=== PATIENT | male | born 1940 | race Caucasian/White ===

== ENCOUNTER 2025-05-17 12:51 | Inpatient (IN) | payer OTHER, MEDICARE ==
[~2025-05-17] VITALS: Ht 175.3 cm; Wt 72.5 kg
[2025-05-17] MEDS ORDERED: AMLO5 PO (13:19)
[2025-05-17] MEDS ORDERED: ALBU90OI INH (13:19)
[2025-05-17 13:20] LABS: BASOPHILS ABSOLUTE AUTO 0.08 K/mm3 (0.00-0.23); BASOPHILS PERCENT AUTO 0 % (0-2); EOSINOPHILS ABSOLUTE AUTO 0.00 K/mm3 (0.00-0.68); EOSINOPHILS PERCENT AUTO 0 % (0-6); Hematocrit 38.1 % (37.0-53.0); Hemoglobin 12.0 g/dL (13.5-17.5); IMMATURE GRAN ABSOLUTE AUTO 0.23 K/mm3 (0.00-0.10); IMMATURE GRAN PERCENT AUTO 1 % (0-1); LYMPHOCYTES ABSOLUTE AUTO 0.89 K/mm3 (0.84-5.20); LYMPHOCYTES PERCENT AUTO 3 % (21-46); MONOCYTES ABSOLUTE AUTO 1.76 K/mm3 (0.16-1.47); MONOCYTES PERCENT AUTO 6 % (4-13); Mean Corpuscular HGB Conc 31.5 g/dL (31.5-36.5); Mean Corpuscular Volume 94 fL (80-100); NEUTROPHILS ABSOLUTE AUTO 27.97 K/mm3 (1.96-9.15); NEUTROPHILS PERCENT AUTO 90 % (41-73); NRBC ABSOLUTE 0.00 K/mm3 (0.00-0.02); NRBC Auto 0.0 /100 WBC (0.0-0.2); Platelet Count 222 K/mm3 (150-400); RDW Coefficient Variation 16.5 % (11.7-14.2); RDW Standard Deviation 56.1 fL (35.1-46.3)
[2025-05-17] MEDS ORDERED: CILOSTAZOL50 M1 PO (13:20)
[2025-05-17] MEDS ORDERED: ATOR40TA PO (13:20)
[2025-05-17] MEDS ORDERED: ASPI81CH PO (13:20)
[2025-05-17] MEDS ORDERED: THERA-D2000 UNIT PO (13:20)
[2025-05-17] MEDS ORDERED: FLUT1DIS8 INH (13:21)
[2025-05-17] MEDS ORDERED: METO100ER PO (13:22)
[2025-05-17] MEDS ORDERED: Flonase 0.05% N16 GM (13:22)
[2025-05-17] MEDS ORDERED: TIOT18 INH (13:23)
[2025-05-17] MEDS ORDERED: CENTRUM SILVER1 EAC2 PO (13:23)
[2025-05-17 13:24] LABS: pH Blood Venous 7.28 (7.34-7.37)
[2025-05-17 13:30] LABS: Alanine Aminotransfer (ALT/SGP 31.0 U/L (12-78); Albumin, Blood 3.1 g/dL (3.4-5.0); Albumin/Globulin Ratio 0.9 (0.8-1.8); Anion Gap 10.0 mmol/L (3-11); Aspartate Aminotrans (AST/SGOT 36.0 U/L (12-37); Bilirubin, Total 0.9 mg/dL (0.1-1.0); Blood Urea Nitrogen 40.0 mg/dL (8-24); CO2, Blood 27.0 mmol/L (21-32); Calcium, Blood 9.2 mg/dL (8.5-10.1); Chloride, Blood 107.0 mmol/L (98-108); Creatinine, Blood 1.47 mg/dL (0.60-1.20); Globulin, Blood 3.5 g/dL (2.2-4.0); Glucose, Blood 126.0 mg/dL (70-99); Potassium, Blood 4.6 mmol/L (3.5-5.5); Sodium, Blood 139.0 mmol/L (136-145); Total Protein, Blood 6.6 g/dL (6.4-8.2)
[2025-05-17 14:42] LABS: Influenza A, PCR NEGATIVE (NEGATIVE); Influenza B, PCR NEGATIVE (NEGATIVE); Resp Syncytial Virus, PCR NEGATIVE (NEGATIVE); SARS-Cov-2 (COVID-19) PCR, MMC NEGATIVE (NEGATIVE)
[2025-05-17] MEDS ORDERED: CefTRIAXone Sodium 1,000 MG in NS 50 ML IV ONE (14:50)
[2025-05-17] MEDS ORDERED: FLU VACC TS2025(65UP)/MF59C/PF 45 MCG/0.5 ML SYRINGE IM SCH (15:50)
[2025-05-17] MEDS ORDERED: Ipratropium/Albuterol SulF 2.5-0.5MG/3 ML Amp INH SCH (16:00)
[2025-05-17] MEDS ORDERED: OCUVITE BLUE L1 EACH PO (17:39)
[2025-05-17] MEDS ORDERED: NITR.4SL SL (17:39)
[2025-05-17 17:46] LABS: Source, Urine Clean Catch
[2025-05-17 17:55] LABS: Bilirubin, Urine Neg (Neg); Color, Urine Yellow (P-Yellow); Glucose Qualitative, Urine Neg (Neg); Ketones, Urine Neg (Neg); Leukocyte Esterase, Urine Neg (Neg); Protein, Urine 2+ (Neg); Specific Gravity, Urine 1.020 (1.003-1.022); Urobilinogen, Urine NORM (Normal)
[2025-05-17 18:20] LABS: Red Blood Cells, Urine 0-2 /hpf (0-2); White Blood Cells, Urine 0-2 /hpf (0-5)
[2025-05-17] MEDS ORDERED: Dose Adjust by Pharmacy XX STA (18:20)
[2025-05-17] MEDS ORDERED: Heparin Sodium 5000 Units/ML 1ML MDV IV ONE (18:25)
[2025-05-17] MEDS ORDERED: Heparin Sodium,Porcine/0.5 NS 500 ML IV SCH (18:25)
--- NOTE | 2025-05-17 19:21 | NUR ---
PT ARRIVAL TO UNIT PT ARRIVED TO UNIT AT 1730, TRANSPORTED VIA GURNEY AND TRANSFERED BY SBA. PT IS A/O X4 ABLE TO MAKE NEEDS KNOWN. PT REPORTED HAVING SOB WITH MOVEMENT, PT ON 8L NC, SP02 >92%. NO ACUTE CHANGES SINCE ARRIVING ON UNIT. BED IN LOWEST POSITION, CALL LIGHT IN REACH, WILL REPORT TO ONCOMING SHIFT.
[2025-05-17 19:57] LABS: Anti-Xa UFH, PHA Monitoring 0.93 IU/mL; Prothrombin Time Results 13.5 Sec (9.7-11.5)
[2025-05-17 20:51] VITALS: BP 112/51
[2025-05-17] MEDS ORDERED: Lactobacil 2-S.Thermo-Bifido 1 1 Cap PO SCH (21:00)
[2025-05-17 23:27] VITALS: BP 121/60
[2025-05-18 01:27] LABS: BASOPHILS ABSOLUTE AUTO 0.03 K/mm3 (0.00-0.23); BASOPHILS PERCENT AUTO 0 % (0-2); EOSINOPHILS ABSOLUTE AUTO 0.00 K/mm3 (0.00-0.68); EOSINOPHILS PERCENT AUTO 0 % (0-6); Hematocrit 34.0 % (37.0-53.0); Hemoglobin 11.1 g/dL (13.5-17.5); IMMATURE GRAN ABSOLUTE AUTO 0.15 K/mm3 (0.00-0.10); IMMATURE GRAN PERCENT AUTO 1 % (0-1); LYMPHOCYTES ABSOLUTE AUTO 0.44 K/mm3 (0.84-5.20); LYMPHOCYTES PERCENT AUTO 2 % (21-46); MONOCYTES ABSOLUTE AUTO 1.15 K/mm3 (0.16-1.47); MONOCYTES PERCENT AUTO 5 % (4-13); Mean Corpuscular HGB Conc 32.6 g/dL (31.5-36.5); Mean Corpuscular Volume 92 fL (80-100); NEUTROPHILS ABSOLUTE AUTO 20.87 K/mm3 (1.96-9.15); NEUTROPHILS PERCENT AUTO 92 % (41-73); NRBC ABSOLUTE 0.00 K/mm3 (0.00-0.02); NRBC Auto 0.0 /100 WBC (0.0-0.2); Platelet Count 221 K/mm3 (150-400); RDW Coefficient Variation 16.2 % (11.7-14.2); RDW Standard Deviation 55.2 fL (35.1-46.3)
[2025-05-18 01:46] LABS: Anion Gap 6.0 mmol/L (3-11); Blood Urea Nitrogen 45.0 mg/dL (8-24); CO2, Blood 29.0 mmol/L (21-32); Calcium, Blood 8.9 mg/dL (8.5-10.1); Chloride, Blood 107.0 mmol/L (98-108); Creatinine, Blood 1.34 mg/dL (0.60-1.20); Glucose, Blood 158.0 mg/dL (70-99); Potassium, Blood 4.3 mmol/L (3.5-5.5); Sodium, Blood 138.0 mmol/L (136-145)
[2025-05-18] MEDS ORDERED: Dose Adjust by Pharmacy XX STA ×2 (02:14→09:45)
[2025-05-18 04:27] VITALS: BP 116/61
--- NOTE | 2025-05-18 05:28 | NUR ---
SHIFT SUMMARY PATIENT A/OX4. LS COARSE RUB T/O ALL FARIA. ON O2 @ 4L/MIN NC. PATIENT COOPERATIVE WITH ALL CARE. HARD OF HEARING. VSS. USES URINAL TO VOID IN BED. DENIED PAIN OR DISCOMFORT. PATIENT'S SON CALLED INTO UNIT REQUESTING INFORMATION. PATIENT DOES NOT WANT TO SHARE ANY INFORMATION WITH HIS SON. HEPARIN INFUSING PER EMAR. PLAN OF CARE ONGOING.
[2025-05-18 07:53] VITALS: BP 111/52
[2025-05-18] MEDS ORDERED: CefTRIAXone Sodium 1,000 MG in NS 100 ML IV SCH (09:00)
[2025-05-18] MEDS ORDERED: Enoxaparin 40 MG/0.4 ML SYR SC SCH ×2 (09:00→15:00)
[2025-05-18] MEDS ORDERED: CefTRIAXone Sodium 2,000 MG in NS 100 ML IV SCH (09:00)
[2025-05-18] MEDS ORDERED: Multivitamins/Minerals 1 Tab PO SCH (09:00)
[2025-05-18] MEDS ORDERED: Fluticasone 0.05% Nasal Spray SCH (09:00)
[2025-05-18] MEDS ORDERED: Cholecalciferol 1000 Unit Tablet (=25MCG) PO SCH (09:00)
[2025-05-18 11:42] VITALS: BP 109/52
[2025-05-18 16:12] VITALS: BP 126/51
--- NOTE | 2025-05-18 17:34 | NUR ---
PT SUMMARY; PT O2 ABLE TO TITRATE DOWN TO 1L. SATS KEPT ABOVE 92%. HRR REMAINS SR AT 90-100'S, TACHS UPT O 130'S A COUPLE TIMES FOR RICARDO SHIFT. SBP 110'S, AFEBRILE. PT ABLE TO GET UP AND WALK AROUND IN THE ROOM VIA WALKER, WAS UP IN THE RECLINER HALF OF THE SHIFT, SOME SOB WITH EXERTION RECOVERS AT REST. BREATHING TX PER RT, PT USES FLUTTER VALVE INDEPENDENTLY. DENIES ANY PAIN OR DISCOMFORT. LR RUNNING AT 100MLS/HR. PT HAS BEEN CALLING APPROPRIATELY ABLE TO MAKE NEEDS KNOWN. WILL REPORT TO ONCOMING SHIFT
[2025-05-18 19:45] VITALS: BP 113/64
[2025-05-18 23:32] VITALS: BP 107/78
[2025-05-19 03:58] LABS: BASOPHILS ABSOLUTE AUTO 0.02 K/mm3 (0.00-0.23); BASOPHILS PERCENT AUTO 0 % (0-2); EOSINOPHILS ABSOLUTE AUTO 0.00 K/mm3 (0.00-0.68); EOSINOPHILS PERCENT AUTO 0 % (0-6); Hematocrit 30.2 % (37.0-53.0); Hemoglobin 9.9 g/dL (13.5-17.5); IMMATURE GRAN ABSOLUTE AUTO 0.07 K/mm3 (0.00-0.10); IMMATURE GRAN PERCENT AUTO 0 % (0-1); LYMPHOCYTES ABSOLUTE AUTO 0.47 K/mm3 (0.84-5.20); LYMPHOCYTES PERCENT AUTO 3 % (21-46); MONOCYTES ABSOLUTE AUTO 1.01 K/mm3 (0.16-1.47); MONOCYTES PERCENT AUTO 6 % (4-13); Mean Corpuscular HGB Conc 32.8 g/dL (31.5-36.5); Mean Corpuscular Volume 92 fL (80-100); NEUTROPHILS ABSOLUTE AUTO 14.24 K/mm3 (1.96-9.15); NEUTROPHILS PERCENT AUTO 90 % (41-73); NRBC ABSOLUTE 0.02 K/mm3 (0.00-0.02); NRBC Auto 0.1 /100 WBC (0.0-0.2); Platelet Count 208 K/mm3 (150-400); RDW Coefficient Variation 15.7 % (11.7-14.2); RDW Standard Deviation 53.3 fL (35.1-46.3)
[2025-05-19 04:19] VITALS: BP 119/57
[2025-05-19 04:28] LABS: Anion Gap 7.0 mmol/L (3-11); Blood Urea Nitrogen 50.0 mg/dL (8-24); CO2, Blood 27.0 mmol/L (21-32); Calcium, Blood 8.9 mg/dL (8.5-10.1); Chloride, Blood 108.0 mmol/L (98-108); Creatinine, Blood 1.13 mg/dL (0.60-1.20); Glucose, Blood 170.0 mg/dL (70-99); Potassium, Blood 4.3 mmol/L (3.5-5.5); Sodium, Blood 138.0 mmol/L (136-145)
--- NOTE | 2025-05-19 04:46 | NUR ---
SHIFT SUMMARY THIS RN ASSUMED CARE OF PATIENT AT 1900. PT A&O X4. ABLE TO MAKE NEEDS KNOWN. SBA WITH URINAL. PT AMBULATED TO BATHROOM THIS SHIFT. DYSPNEA NOTED WITH EXERTION. PT NEEDING 1-3L VIA NC TO MAINTAIN SPO2. BP STABLE. SR ON MONITOR WITH PAC'S/PVC'S. PT ABLE TO REPOSITION SELF INDEPENDENTLY. PRODUCTIVE COUGH NOTED. LR INFUSING PER EMAR. BED IN LOWEST POSITION AND CALL LIGHT WITHIN REACH. THIS RN WILL REPORT TO ONCOMING DAYSHIFT RN.
[2025-05-19 07:39] VITALS: BP 126/72
[2025-05-19] MEDS ORDERED: NS 250 ML IV PRN (08:45)
--- NOTE | 2025-05-19 10:46 | NUR ---
RN NOTE Mr Andrea c/o increased shortness of breath this morning. Pulse ox in the 90s on 2L nc O2. He has increased shortness of breath on exertion and talking. He has a low strength productive cough. Using flutter valve and receiving breathing treatments from RT. He is able to sit up and reposition himself in bed/on the edge of the bed. He denies any pain. IVF stopped per verbal order from Dr Cooper. Tele SR, BBB, PVCs, PACs. Bed low, call light in reach.
[2025-05-19 11:44] VITALS: BP 132/66
[2025-05-19 15:38] VITALS: BP 130/66
--- NOTE | 2025-05-19 15:48 | NUR ---
Shift Summary Mr Andrea is orientated x4. Dozing on and off throughout the shift. He denies any pain. He gets short of breath with activity, has been weaned down to room air at 1540hrs. Sat 92% on room air, will continue to monitor. He has been sitting up on the edge of the bed for meals, moving independently. On telemetry SR/ST low 100s. No calls from telephone operator chief. Bed low, call light in reach.
--- NOTE | 2025-05-19 16:44 | NUR ---
RN note Attempt to wean to room air unsuccessful, back on 1L nc oxygen with sat 92%
[2025-05-19 20:43] VITALS: BP 126/69
[2025-05-19 23:28] VITALS: BP 121/65
[2025-05-20] VITALS (32 sets, daily range): BP systolic 90–164; BP diastolic 44–104
[2025-05-20 02:48] LABS: BASOPHILS ABSOLUTE AUTO 0.03 K/mm3 (0.00-0.23); BASOPHILS PERCENT AUTO 0 % (0-2); EOSINOPHILS ABSOLUTE AUTO 0.00 K/mm3 (0.00-0.68); EOSINOPHILS PERCENT AUTO 0 % (0-6); Hematocrit 33.0 % (37.0-53.0); Hemoglobin 10.4 g/dL (13.5-17.5); IMMATURE GRAN ABSOLUTE AUTO 0.16 K/mm3 (0.00-0.10); IMMATURE GRAN PERCENT AUTO 1 % (0-1); LYMPHOCYTES ABSOLUTE AUTO 0.71 K/mm3 (0.84-5.20); LYMPHOCYTES PERCENT AUTO 3 % (21-46); MONOCYTES ABSOLUTE AUTO 2.08 K/mm3 (0.16-1.47); MONOCYTES PERCENT AUTO 8 % (4-13); Mean Corpuscular HGB Conc 31.5 g/dL (31.5-36.5); Mean Corpuscular Volume 94 fL (80-100); NEUTROPHILS ABSOLUTE AUTO 21.76 K/mm3 (1.96-9.15); NEUTROPHILS PERCENT AUTO 88 % (41-73); NRBC ABSOLUTE 0.04 K/mm3 (0.00-0.02); NRBC Auto 0.2 /100 WBC (0.0-0.2); Platelet Count 236 K/mm3 (150-400); RDW Coefficient Variation 15.7 % (11.7-14.2); RDW Standard Deviation 54.2 fL (35.1-46.3)
[2025-05-20 03:04] LABS: Anion Gap 6.0 mmol/L (3-11); Blood Urea Nitrogen 37.0 mg/dL (8-24); CO2, Blood 30.0 mmol/L (21-32); Calcium, Blood 9.0 mg/dL (8.5-10.1); Chloride, Blood 107.0 mmol/L (98-108); Creatinine, Blood 0.95 mg/dL (0.60-1.20); Glucose, Blood 148.0 mg/dL (70-99); Potassium, Blood 4.7 mmol/L (3.5-5.5); Sodium, Blood 138.0 mmol/L (136-145)
--- NOTE | 2025-05-20 05:29 | NUR ---
SHIFT SUMMARY THIS RN ASSUMED CARE OF PATIENT AT 1900. PT A&O X4. ABLE TO MAKE NEEDS KNOWN. SBA WITH URINAL. SOB WITH EXERTION AND CONVERSATION. PT NEEDING 1-5L VIA NC TO MAINTAIN SPO2. EPISODE OF INCREASED SOB EARLY THIS AM THAT REQUIRED PT TO BE ON 5L WITH BREATHING TX GIVEN. PT WAS SLOW TO RECOVER. OTHERWISE NO ACUTE CHANGES THIS SHIFT. BP STABLE. SR ON MONITOR WITH PAC'S/PVC'S. PT ABLE TO REPOSITION SELF INDEPENDENTLY. PRODUCTIVE COUGH NOTED. BED IN LOWEST POSITION AND CALL LIGHT WITHIN REACH. THIS RN WILL REPORT TO ONCOMING DAYSHIFT RN.
--- NOTE | 2025-05-20 09:56 | NUR ---
THIS RN CALLED DR. MERCER WITH CONCERN FOR PT'S INCREASE RESP DISTRESS AT RN-PROVIDER ROUNDING ABOUT 814, THIS RN AND CUBA RN DISCUSSED CONCERNS OF PT'S SOB, TACHYPENEA, AND ACCESSORY MUSCLE USE WHILE BREATHING. REPEAT XRAY, DIRUETICS, AND ANXIETY MEDICATIONS WERE DISCUSSED ON ROUNDS. ABOUT 899 THE PT BEGAN HAVING MORE INCREASED SOB. THIS RN FOUND DR. MC AND DR. GREENE ON THE UNIT AND AGAIN EXPRESSED THE CONCERNS OF THE PT. AT THAT TIME DR. MC AND DR. GREENE ORDERED 0.5-1MG OF ATIVAN AND 40 IV LASIX. ABOUT 929 WHILE THIS RN WAS MEDICATING THE PT, GASKET SUPERVISOR CALLED DR. GREENE TO ASK FOR BIPAP TO HELP PUSH FLUIDS OUT OF THE PT'S LUNGS AND LET THEM KNOW OF INCREASE OXYGEN DEMAND TO 10L NC. ALSO, THIS RN ASKED FOR A STAT XRAY BEFORE THE BIPAP IS STARTED. XRAY CURRENTLY BEING PREFORMED AT THIS TIME. BIPAP IS ON STANDBY WITH RESP THERAPY. SINCE THE PT HAS RECIEVED 0.5MG HIS RESP NEED HAS DECREASED TO 4LNC. RESP RATE CURRENTLY 56. SEE NOTES FOR UPDATES.
[2025-05-20] MEDS ORDERED: LORazepam 2 MG/ML 1ML Injection IV ONE (10:00)
[2025-05-20] MEDS ORDERED: LORazepam 2 MG/ML 1ML Injection IV PRN (10:00)
[2025-05-20 11:17] LABS: pH Blood Arterial 7.33 (7.35-7.45)
--- NOTE | 2025-05-20 11:33 | NUR ---
DR. GREENE AND DR. RAMIREZ CALLED TO BEDSIDE D/T PT CONTINOUSLY REGRESSING. ROQUE RT AT BEDSIDE. ABG OBTAINED. VILLA INSERTED BY CUBA PAEZ. THE PT DID TELL NURSES AND THE STAFF THAT IF HE NEEDS TO BE INTUBATED HE IS OKAY WITH IT. ALSO, THE PT STATED THAT HIS NATHALIE RANDHAWA:[phone] IS HIS HEALTH PROXY. THE PT DOES NOT WANT ANY INFORMATION GIVEN TO HIS SON. CURRENTLY THE PT IS ON THE BIPAP 04/02 @ 40% RESP RATE 40'S-50'S. THE PT WILL BE TRANSFERING TO ICU 14. THE PT'S FREIND IS AT BEDSIDE AND HAS BEEN UPDATED ON THE TRANSFER AND CONDITION OF THE PT. THE FREIND ROQUE: [phone] DID CALL THE PT'S AND GAVE HER A HEADS UP THAT THE HOSPITAL WILL BE CALLING HER. SEE NOTES FOR UPDATES.
[2025-05-20] MEDS ORDERED: Ipratropium/Albuterol SulF 2.5-0.5MG/3 ML Amp INH SCH (12:00)
[2025-05-20] MEDS ORDERED: Ipratropium/Albuterol SulF 2.5-0.5MG/3 ML Amp INH ONE (12:00)
[2025-05-20] MEDS ORDERED: CefTRIAXone Sodium 1,000 MG in NS 100 ML IV ONE (12:20)
--- NOTE | 2025-05-20 12:23 | NUR ---
TRANSFER TO ICU SEE PREVIOUS NURSE NOTES. PT TRANSFERRED TO ICU 14, BEDSIDE REPORT GIVEN TO JEANNA PAEZ. PT'S NATHALIE AND FRIEND HAVE BEEN MADE AWARE OF THE TRANSFER. NATHALIE AWARE THAT DR. GREENE WILL BE CALLING HER TO UPDATE HER SOON. DURING TRANSFER, PT REMAINED ON BIPAP 16/8 W/ 40%. BELONGNGS,INCLUDING HEARING AIDS AND SUPERVISING LIBRARIAN, HAVE BEEN PACKED UP AND MOVED WITH PT. RESPIRATORY PANEL COMPLETED PRIOR TO TRANSFER AND SENT TO LAB. NO FURTHER NOTES FROM THIS RN.
[2025-05-20 13:39] LABS: Influenza A/2009-H1 Not Detected (NOT DETECT); SARS-Cov-2 (COVID-19), BioFire Not Detected (NOT DETECT)
[2025-05-20] MEDS ORDERED: Vancomycin (Pharmacy Consult) IV SCH (14:30)
[2025-05-20 17:55] LABS: pH Blood Arterial 7.36 (7.35-7.45)
[2025-05-20 18:14] LABS: Albumin, Blood 2.4 g/dL (3.4-5.0); Anion Gap 5 mmol/L (3-11); Blood Urea Nitrogen 30 mg/dL (8-24); CO2, Blood 32 mmol/L (21-32); Calcium, Blood 8.7 mg/dL (8.5-10.1); Chloride, Blood 107 mmol/L (98-108); Creatinine, Blood 0.89 mg/dL (0.60-1.20); Glucose, Blood 165 mg/dL (70-99); Magnesium, Blood 2.1 mg/dL (1.6-2.4); Phosphorus, Blood 3.6 mg/dL (2.5-4.9); Potassium, Blood 4.3 mmol/L (3.5-5.5); Sodium, Blood 140 mmol/L (136-145)
--- NOTE | 2025-05-20 18:17 | NUR ---
Patient arrived from PCU today at 11:53 with increased work of breathing and requiring Bipap. Patient was able to come off of Bipap ~15:13 when patient was constantly pulling at his Bipap. Patient remained off Bipap until ~16:53 when his work of breathing increased again. Precedex infusion started at this time to help patient tolerate Bipap. Patient's cell phone, upper dentures and hearing aids present in his belongings.
[2025-05-21] VITALS (44 sets, daily range): BP systolic 92–160; BP diastolic 43–88
[2025-05-21 03:35] LABS: BASOPHILS ABSOLUTE AUTO 0.02 K/mm3 (0.00-0.23); BASOPHILS PERCENT AUTO 0 % (0-2); EOSINOPHILS ABSOLUTE AUTO 0.00 K/mm3 (0.00-0.68); EOSINOPHILS PERCENT AUTO 0 % (0-6); Hematocrit 33.2 % (37.0-53.0); Hemoglobin 10.7 g/dL (13.5-17.5); IMMATURE GRAN ABSOLUTE AUTO 0.08 K/mm3 (0.00-0.10); IMMATURE GRAN PERCENT AUTO 1 % (0-1); LYMPHOCYTES ABSOLUTE AUTO 0.36 K/mm3 (0.84-5.20); LYMPHOCYTES PERCENT AUTO 2 % (21-46); MONOCYTES ABSOLUTE AUTO 0.85 K/mm3 (0.16-1.47); MONOCYTES PERCENT AUTO 5 % (4-13); Mean Corpuscular HGB Conc 32.2 g/dL (31.5-36.5); Mean Corpuscular Volume 92 fL (80-100); NEUTROPHILS ABSOLUTE AUTO 16.27 K/mm3 (1.96-9.15); NEUTROPHILS PERCENT AUTO 93 % (41-73); NRBC ABSOLUTE 0.00 K/mm3 (0.00-0.02); NRBC Auto 0.0 /100 WBC (0.0-0.2); Platelet Count 192 K/mm3 (150-400); RDW Coefficient Variation 15.6 % (11.7-14.2); RDW Standard Deviation 53.0 fL (35.1-46.3)
[2025-05-21 03:38] LABS: pH Blood Venous 7.52 (7.34-7.37)
[2025-05-21 04:08] LABS: Alanine Aminotransfer (ALT/SGP 51.0 U/L (12-78); Albumin, Blood 2.0 g/dL (3.4-5.0); Albumin/Globulin Ratio 0.6 (0.8-1.8); Anion Gap 7.0 mmol/L (3-11); Aspartate Aminotrans (AST/SGOT 20.0 U/L (12-37); Bilirubin, Total 0.4 mg/dL (0.1-1.0); Blood Urea Nitrogen 37.0 mg/dL (8-24); CO2, Blood 30.0 mmol/L (21-32); Calcium, Blood 9.0 mg/dL (8.5-10.1); Chloride, Blood 110.0 mmol/L (98-108); Creatinine, Blood 0.91 mg/dL (0.60-1.20); Globulin, Blood 3.3 g/dL (2.2-4.0); Glucose, Blood 164.0 mg/dL (70-99); Magnesium, Blood 2.2 mg/dL (1.6-2.4); Phosphorus, Blood 3.7 mg/dL (2.5-4.9); Potassium, Blood 4.9 mmol/L (3.5-5.5); Sodium, Blood 142.0 mmol/L (136-145); Total Protein, Blood 5.3 g/dL (6.4-8.2)
--- NOTE | 2025-05-21 06:22 | NUR ---
SHIFT SUMMERY PT HAS BEEN ALERT AND ORIENTED X3 THROUGHOUT THE NIGHT. HE HAS BEEN DIFFICULT TO REDIRECT W/COMPLIANCE TO WEAR HIS BIPAP. PRECEDEX HAS BEEN INFUSING, SEE [facility]. PT WAS GIVEN A BREAK ON 4L NC BUT BECAME INCREASINGLY TACYPNIC AND AIR HUNGRY. HE HAS BEEN SR ON THE AUDIT LEAD W/OCCASIONAL PAC/PVC. AFEBRILE. OXYGEN SAT HAVE MAINTAINED >90%. PT HAS A WEAK CONGESTED COUGH. VILLA CATH INTACT PATENT AND DRAINING YELLOW URINE. BP WNL. GENERALIZED WEAKNESS, SOME CONFUSION AT TIMES UPON WAKING
[2025-05-21] MEDS ORDERED: CefTRIAXone Sodium 2,000 MG in NS 100 ML IV SCH (09:00)
[2025-05-21 13:00] LABS: Acinetobacter baumannii DNA Not Detected copy/mL (NOT DETECT); Enterobacter cloacae DNA Not Detected copy/mL (NOT DETECT); Klebsiella aerogenes DNA Not Detected copy/mL (NOT DETECT); Klebsiella oxytoca DNA Not Detected copy/mL (NOT DETECT); Klebsiella pneumoniae DNA Not Detected copy/mL (NOT DETECT); Moraxella catarrhalis DNA Detected Bin 10^5 copy/mL (NOT DETECT); Proteus sp DNA Not Detected copy/mL (NOT DETECT); Pseudomonas aeruginosa DNA Detected Bin 10^4 copy/mL (NOT DETECT); Serratia marcescens DNA Not Detected copy/mL (NOT DETECT); Staphylococcus aureus DNA Not Detected copy/mL (NOT DETECT); Streptococcus agalactiae DNA Not Detected copy/mL (NOT DETECT); Streptococcus pneumoniae DNA Not Detected copy/mL (NOT DETECT); Streptococcus pyogenes DNA Not Detected copy/mL (NOT DETECT)
[2025-05-21 13:01] LABS: CTX-M Resistance Gene Not Detected; Chlamydia pneumonia Not Detected (NOT DETECT); Escherichia coli DNA Not Detected copy/mL (NOT DETECT); Haemophilus influenzae DNA Detected Bin 10^4 copy/mL (NOT DETECT); Human Coronavirus RNA Not Detected (NOT DETECT); Human Metapneumovirus RNA Not Detected (NOT DETECT); IMP Resistance Gene Not Detected; Influenza virus A RNA Not Detected (NOT DETECT); Influenza virus B RNA Not Detected (NOT DETECT); KPC Resistance Gene Not Detected; NDM Resistance Gene Not Detected; Respiratory syncytial Vir RNA Not Detected (NOT DETECT); Rhinovirus+Enterovirus RNA Not Detected (NOT DETECT); VIM Resistance Gene Not Detected
--- NOTE | 2025-05-21 22:14 | NUR ---
UPDATE TRANSFERRED PATIENT CHANGED TO PCU STATUS. GAVE REPORT TUSHAR PAEZ PCU. PATIENT TRANSFERRED TO PCU 2 @2200
[2025-05-21] MEDS ORDERED: Metoprolol Tartrate 1 MG/ML 5 ML VIAL IV PRN (23:30)
[2025-05-22] VITALS (9 sets, daily range): BP systolic 115–150; BP diastolic 55–88
[2025-05-22] MEDS ORDERED: LORazepam 2 MG/ML 1ML Injection IV PRN ×3 (00:55)
[2025-05-22] MEDS ORDERED: Metoprolol Tartrate 1 MG/ML 5 ML VIAL IV PRN ×2 (03:15→12:20)
[2025-05-22 03:56] LABS: pH Blood Venous 7.46 (7.34-7.37)
[2025-05-22 03:56] LABS: BASOPHILS ABSOLUTE AUTO 0.03 K/mm3 (0.00-0.23); BASOPHILS PERCENT AUTO 0 % (0-2); EOSINOPHILS ABSOLUTE AUTO 0.00 K/mm3 (0.00-0.68); EOSINOPHILS PERCENT AUTO 0 % (0-6); Hematocrit 34.1 % (37.0-53.0); Hemoglobin 11.0 g/dL (13.5-17.5); IMMATURE GRAN ABSOLUTE AUTO 0.17 K/mm3 (0.00-0.10); IMMATURE GRAN PERCENT AUTO 1 % (0-1); LYMPHOCYTES ABSOLUTE AUTO 0.35 K/mm3 (0.84-5.20); LYMPHOCYTES PERCENT AUTO 2 % (21-46); MONOCYTES ABSOLUTE AUTO 0.93 K/mm3 (0.16-1.47); MONOCYTES PERCENT AUTO 5 % (4-13); Mean Corpuscular HGB Conc 32.3 g/dL (31.5-36.5); Mean Corpuscular Volume 91 fL (80-100); NEUTROPHILS ABSOLUTE AUTO 17.78 K/mm3 (1.96-9.15); NEUTROPHILS PERCENT AUTO 92 % (41-73); NRBC ABSOLUTE 0.00 K/mm3 (0.00-0.02); NRBC Auto 0.0 /100 WBC (0.0-0.2); Platelet Count 258 K/mm3 (150-400); RDW Coefficient Variation 15.6 % (11.7-14.2); RDW Standard Deviation 52.3 fL (35.1-46.3)
[2025-05-22 04:16] LABS: Anion Gap 8.0 mmol/L (3-11); Blood Urea Nitrogen 41.0 mg/dL (8-24); CO2, Blood 30.0 mmol/L (21-32); Calcium, Blood 9.2 mg/dL (8.5-10.1); Chloride, Blood 108.0 mmol/L (98-108); Creatinine, Blood 0.9 mg/dL (0.60-1.20); Glucose, Blood 182.0 mg/dL (70-99); Potassium, Blood 4.4 mmol/L (3.5-5.5); Sodium, Blood 142.0 mmol/L (136-145)
--- NOTE | 2025-05-22 07:24 | NUR ---
SHIFT SUMMARY: PT TRANSFERRED FROM ICU TO PCU 2 VIA SPECIALTY BED AT 2206, SLID PT OVER TO HOSPITAL BED USING A SLIDE SHEET. PT ORIENTED TO ROOM, STAFF AND CALL LIGHT. PT IS A&OX3, OFF ON DATE. VERY [place], BILAT HEARING AIDES IN POWER CHECKER AT BEDSIDE. BP STABLE, HR TACHY, AFEBRILE, TACHYPNEIC ON RA, SATS >90%. HE WORE CPAP FOR A SHORT TIME HE CAN'T TOLERATE IT. MULTIFOCAL ATRIAL TACHYCARDIA 110'S INCREASED TO 140'S WITH ANY EXERTION. PT CONVERTED TO AFIB WITH RVR, A TOTAL OF 4 LOPRESSOR PUSHES ADMINISTERED, SEE EMAR. PT NOW IN AFLUTTER/AFIB 110'S- 130'S. DENIES PAIN. TOLERATING A HEART HEALTHY DIET. VILLA CATHETER PATENT, DRAINING ADEQUATE AMOUNTS OF YELLOW URINE TO GRAVITY. NO BM THIS SHIFT, NEEDS BOWEL CARE ORDERED. BED IN LOWEST POSITION, CALL LIGHT WITHIN REACH. INITIATED DROPLET PRECAUTIONS FOR POSITIVE INFLUENZA. BED ALARM SET FOR PT'S SAFETY.
--- NOTE | 2025-05-22 18:47 | NUR ---
SHIFT SUMMARY PATIENT AOX3-4 ABLE TO NEEDS KNOWN DENIES CP DOES HAVE SOB WITH EXERTION. VITALS ARE STABLE WITH HR IN 130s 2 DOSES OF PO METOPROLOL GIVEN AND HR NOW IN THE 110s. PATIENT TOLERAING HIS MEALS AND ABLE TO USE THE BEDSIDE COMMODE FOR BM AND VILLA IS DRAINING TO GRAVITY.
[2025-05-22] MEDS ORDERED: Enoxaparin 80 MG/0.8 ML SYR SC SCH (21:00)
[2025-05-23 00:46] VITALS: BP 149/96
[2025-05-23 04:18] VITALS: BP 130/90
[2025-05-23 04:27] LABS: BASOPHILS ABSOLUTE AUTO 0.02 K/mm3 (0.00-0.23); BASOPHILS PERCENT AUTO 0 % (0-2); EOSINOPHILS ABSOLUTE AUTO 0.00 K/mm3 (0.00-0.68); EOSINOPHILS PERCENT AUTO 0 % (0-6); Hematocrit 32.8 % (37.0-53.0); Hemoglobin 10.6 g/dL (13.5-17.5); IMMATURE GRAN ABSOLUTE AUTO 0.23 K/mm3 (0.00-0.10); IMMATURE GRAN PERCENT AUTO 1 % (0-1); LYMPHOCYTES ABSOLUTE AUTO 0.50 K/mm3 (0.84-5.20); LYMPHOCYTES PERCENT AUTO 3 % (21-46); MONOCYTES ABSOLUTE AUTO 0.64 K/mm3 (0.16-1.47); MONOCYTES PERCENT AUTO 4 % (4-13); Mean Corpuscular HGB Conc 32.3 g/dL (31.5-36.5); Mean Corpuscular Volume 91 fL (80-100); NEUTROPHILS ABSOLUTE AUTO 15.11 K/mm3 (1.96-9.15); NEUTROPHILS PERCENT AUTO 92 % (41-73); NRBC ABSOLUTE 0.00 K/mm3 (0.00-0.02); NRBC Auto 0.0 /100 WBC (0.0-0.2); Platelet Count 283 K/mm3 (150-400); RDW Coefficient Variation 15.5 % (11.7-14.2); RDW Standard Deviation 52.3 fL (35.1-46.3)
[2025-05-23 06:19] LABS: Anion Gap 6.0 mmol/L (3-11); Blood Urea Nitrogen 44.0 mg/dL (8-24); CO2, Blood 33.0 mmol/L (21-32); Calcium, Blood 9.2 mg/dL (8.5-10.1); Chloride, Blood 107.0 mmol/L (98-108); Creatinine, Blood 0.89 mg/dL (0.60-1.20); Glucose, Blood 163.0 mg/dL (70-99); Potassium, Blood 4.6 mmol/L (3.5-5.5); Sodium, Blood 141.0 mmol/L (136-145)
--- NOTE | 2025-05-23 06:52 | NUR ---
SHIFT SUMMARY: PT IS A&OX3, OFF ON DATE. VERY [place], BILAT HEARING AIDES IN FARROWING WORKER AT BEDSIDE. WHEN PT WAKES UP HE IS DISORIENTED, BUT IS REORIENTED QUICKLY. BP STABLE, HR TACHY, AFEBRILE, TACHYPNEIC ON RA, SATS >95%. PT DID NOT WEAR THE BIPAP THIS SHIFT. PT IN A-FLUTTER 110'S-120'S, OCCASIONALLY HITS 130'S BUT DOES NOT SUSTAIN. DENIES PAIN. TOLERATING A HEART HEALTHY DIET. VILLA CATHETER PATENT, DRAINING ADEQUATE AMOUNTS OF YELLOW URINE TO GRAVITY. THIS MORNING THERE WAS SOME HEMATURIA, POSSIBLY D/T THE VILLA CATHETER GETTING TUGGED ON. NO BM THIS SHIFT, NO BOWEL CARE ORDERED. BED IN LOWEST POSITION, CALL LIGHT WITHIN REACH. MAINTAINED DROPLET PRECAUTIONS FOR POSITIVE INFLUENZA. BED ALARM SET FOR PT'S SAFETY.
[2025-05-23] MEDS ORDERED: Ipratropium/Albuterol SulF 2.5-0.5MG/3 ML Amp ONE (07:27)
[2025-05-23 08:31] VITALS: BP 128/74
[2025-05-23] MEDS ORDERED: Ipratropium/Albuterol SulF 2.5-0.5MG/3 ML Amp INH SCH (12:00)
[2025-05-23 12:03] VITALS: BP 140/63
[2025-05-23 18:05] VITALS: BP 162/95
--- NOTE | 2025-05-23 19:33 | NUR ---
SHIFT SUMMARY PATIENT AOX3-4 RICHARD TO MAKE NEEDS KNOWN DENIES CP OR SOB VITALS STABLE HR 110s-130s ALL SHIFT HOSP AWARE DIG ORDERED X 3 DOSES. TOLERATING HIS MEALS AND VOIDING IN THE VILLA.
[2025-05-23 21:03] VITALS: BP 149/98
[2025-05-24 00:07] VITALS: BP 146/81
[2025-05-24 03:38] LABS: BASOPHILS ABSOLUTE AUTO 0.02 K/mm3 (0.00-0.23); BASOPHILS PERCENT AUTO 0 % (0-2); EOSINOPHILS ABSOLUTE AUTO 0.00 K/mm3 (0.00-0.68); EOSINOPHILS PERCENT AUTO 0 % (0-6); Hematocrit 33.0 % (37.0-53.0); Hemoglobin 10.7 g/dL (13.5-17.5); IMMATURE GRAN ABSOLUTE AUTO 0.23 K/mm3 (0.00-0.10); IMMATURE GRAN PERCENT AUTO 1 % (0-1); LYMPHOCYTES ABSOLUTE AUTO 1.06 K/mm3 (0.84-5.20); LYMPHOCYTES PERCENT AUTO 6 % (21-46); MONOCYTES ABSOLUTE AUTO 1.33 K/mm3 (0.16-1.47); MONOCYTES PERCENT AUTO 7 % (4-13); Mean Corpuscular HGB Conc 32.4 g/dL (31.5-36.5); Mean Corpuscular Volume 92 fL (80-100); NEUTROPHILS ABSOLUTE AUTO 15.37 K/mm3 (1.96-9.15); NEUTROPHILS PERCENT AUTO 85 % (41-73); NRBC ABSOLUTE 0.00 K/mm3 (0.00-0.02); NRBC Auto 0.0 /100 WBC (0.0-0.2); Platelet Count 262 K/mm3 (150-400); RDW Coefficient Variation 15.1 % (11.7-14.2); RDW Standard Deviation 51.0 fL (35.1-46.3)
[2025-05-24 04:32] LABS: Alanine Aminotransfer (ALT/SGP 44.0 U/L (12-78); Albumin, Blood 2.2 g/dL (3.4-5.0); Albumin/Globulin Ratio 0.8 (0.8-1.8); Anion Gap 5.0 mmol/L (3-11); Aspartate Aminotrans (AST/SGOT 20.0 U/L (12-37); Bilirubin, Total 0.4 mg/dL (0.1-1.0); Blood Urea Nitrogen 35.0 mg/dL (8-24); CO2, Blood 33.0 mmol/L (21-32); Calcium, Blood 8.7 mg/dL (8.5-10.1); Chloride, Blood 107.0 mmol/L (98-108); Creatinine, Blood 0.91 mg/dL (0.60-1.20); Globulin, Blood 2.9 g/dL (2.2-4.0); Glucose, Blood 114.0 mg/dL (70-99); Potassium, Blood 4.4 mmol/L (3.5-5.5); Sodium, Blood 141.0 mmol/L (136-145); Total Protein, Blood 5.1 g/dL (6.4-8.2)
[2025-05-24 05:07] VITALS: BP 152/103
[2025-05-24 07:56] VITALS: BP 136/82
--- NOTE | 2025-05-24 08:06 | NUR ---
SHIFT SUMMARY: PT IS A&OX3, OFF ON DATE. VERY [place], BILAT HEARING AIDES IN RN TRAVELING AT BEDSIDE. BP STABLE, HR TACHY, AFEBRILE, TACHYPNEIC ON RA, SATS >95% WHILE AWAKE, WHEN PT FINALLY FELL ASLEEP, HE DESATTED TO 85%, PLACED PT ON 2L OXYGEN VIA NC. PT GOES BETWEEN A-FIB AND A-FLUTTER 100'S-120'S, OCCASIONALLY HITS 130'S BUT DOES NOT SUSTAIN. AT BEGINNING OF SHIFT, PT IS RESTLESS, AND UNCOMFORTABLE. THE MANAGER METROLOGY AND THIS NURSE, PLACED A WAFFLE OVERLAY ON HIS MATTRESS, GOT HIM FRESH LINENS, GAVE HIM A BED BATH AND GOT HIM TUCKED BACK INTO BED. PT HAD NOTHING FOR PAIN ORDERED, SO I CALLED DR VELÁZQUEZ FOR SOME ADVIL THIS IS WHAT THE PT STATES HE TAKES AT HOME. AFTER ADMINISTERING 400 MG ADVIL, NIGHT TIME MELATONIN AND PRN ATIVAN, PT WAS ABLE TO GET SOME REST. PT SLEPT WELL T/O THE NIGHT. TOLERATING A HEART HEALTHY DIET. VILLA CATHETER PATENT, DRAINING ADEQUATE AMOUNTS OF YELLOW URINE TO GRAVITY. NO BM THIS SHIFT, NO BOWEL CARE ORDERED. BED IN LOWEST POSITION, CALL LIGHT WITHIN REACH. MAINTAINED DROPLET PRECAUTIONS FOR POSITIVE INFLUENZA. BED ALARM SET FOR PT'S SAFETY.
[2025-05-24] MEDS ORDERED: Polyethylene Glycol 3350 17 gm PO PRN (09:40)
--- NOTE | 2025-05-24 09:54 | NUR ---
ASSUMPTION OF CARE: ASSUMED CARE OF PT AT APPROX 0720. PT A/O X4, ABLE TO MAKE NEEDS KNOWN. STRENGTH EQUAL BILATERALLY. ROOM AIR, SATS >93%. DENIES SOB. 2L NC @ NOC DUE TO DESATURATION. AFIB 90s, DENIES CHEST PAIN/PRESSURE. ALL OTHER VITALS STABLE. MD AT BEDSIDE THIS AM, REQUESTED BOWEL CARE FOR PT. EMAR UPDATED. VILLA IN PLACE FOR RETENTION, DRAINING TO GRAVITY. PT LYING IN BED, CALL WITHIN REACH.
[2025-05-24 11:42] VITALS: BP 134/62
[2025-05-24] MEDS ORDERED: DIGOX125 MC1 PO (12:36)
[2025-05-24] MEDS ORDERED: LEVO750 PO (12:37)
[2025-05-24] MEDS ORDERED: VISBIOME 112.51 EACH PO (12:38)
[2025-05-24] MEDS ORDERED: XARELTO20 MG PO (13:05)
== END 2025-05-24 14:15 | disposition home health service (06) | DRG 871 ==
LOC: ER 12:51 → PCU 15:43 → ICUE 15:43 → PCU 16:21 → ICUE 05-20 11:34 → PCU 05-21 22:01
PROVIDERS: Emergency Medicine; Internal Medicine Critical Care Medicine; Student in an Organized Health Care Education/Training Program; ADMIT Internal Medicine
PROC: 3E03329 Introduction of Other Anti-infective into Peripheral Vein, Percutaneous Approach (ICD-10-PCS; principal; 2025-05-17)
PROC: 0T9B70Z Drainage of Bladder with Drainage Device, Via Natural or Artificial Opening (ICD-10-PCS; 2025-05-20)
PROC: 5A09357 Assistance with Respiratory Ventilation, Less than 24 Consecutive Hours, Continuous Positive Airway Pressure (ICD-10-PCS; 2025-05-20)
PROC: 4A133R1 Monitoring of Arterial Saturation, Peripheral, Percutaneous Approach (ICD-10-PCS; 2025-05-20)
DX: A41.9 Sepsis, unspecified organism (principal); I21.A1 Myocardial infarction type 2; J18.9 Pneumonia, unspecified organism; J96.01 Acute respiratory failure with hypoxia; J96.02 Acute respiratory failure with hypercapnia; I50.21 Acute systolic (congestive) heart failure; J44.0 Chronic obstructive pulmonary disease with (acute) lower respiratory infection; J44.1 Chronic obstructive pulmonary disease with (acute) exacerbation; N17.9 Acute kidney failure, unspecified; E87.4 Mixed disorder of acid-base balance; I48.92 Unspecified atrial flutter; I47.19 Other supraventricular tachycardia; Z66 Do not resuscitate; R65.20 Severe sepsis without septic shock; I25.10 Atherosclerotic heart disease of native coronary artery without angina pectoris; E78.5 Hyperlipidemia, unspecified; I73.9 Peripheral vascular disease, unspecified; I08.2 Rheumatic disorders of both aortic and tricuspid valves; I11.0 Hypertensive heart disease with heart failure; J43.9 Emphysema, unspecified; B96.5 Pseudomonas (aeruginosa) (mallei) (pseudomallei) as the cause of diseases classified elsewhere; B96.3 Hemophilus influenzae [H. influenzae] as the cause of diseases classified elsewhere; B96.89 Other specified bacterial agents as the cause of diseases classified elsewhere; Z60.2 Problems related to living alone; Z95.1 Presence of aortocoronary bypass graft; Z87.891 Personal history of nicotine dependence; Z79.82 Long term (current) use of aspirin; Z79.899 Other long term (current) drug therapy; Z77.090 Contact with and (suspected) exposure to asbestos; Z79.51 Long term (current) use of inhaled steroids
CPT/HCPCS: 0202U; 0528U; 36415; 36600; 51702; 71045; 71046; 71260; 80048; 80053; 80069; 80162; 81001; 82330; 82570; 82803; 83605; 83735; 83880; 84100; 84145; 84300; 84484; 84540; 85025; 85379; 85520; 85610; 85730; 87040; 87070; 87637; 93005; 93010; 93306; 94640; 94660; 94664; 94760; 94762; 96374; 99285-25; A9270; J0456; J0696; J1160; J1644; J1650; J1938; J2060; J2919; J3373; J7040; J7050; J7120; Q9967

== ENCOUNTER 2025-05-25 10:35 | Inpatient (IN) | payer OTHER ==
[~2025-05-25] VITALS: Ht 180.3 cm; Wt 71.9 kg
[~2025-05-25 10:35] MED LIST: ALBU90OI INH; AMLO5 PO; ASPI81CH PO; ATOR40TA PO; CENTRUM SILVER1 EAC2 PO; CILOSTAZOL50 M1 PO; DIGOX125 MC1 PO; FLUT1DIS8 INH; Flonase 0.05% N16 GM; LEVO750 PO; METO100ER PO; NITR.4SL SL; OCUVITE BLUE L1 EACH PO; THERA-D2000 UNIT PO; TIOT18 INH; VISBIOME 112.51 EACH PO; XARELTO20 MG PO
[2025-05-25 11:13] LABS: BASOPHILS ABSOLUTE AUTO 0.05 K/mm3 (0.00-0.23); BASOPHILS PERCENT AUTO 0 % (0-2); EOSINOPHILS ABSOLUTE AUTO 0.04 K/mm3 (0.00-0.68); EOSINOPHILS PERCENT AUTO 0 % (0-6); Hematocrit 43.1 % (37.0-53.0); Hemoglobin 13.7 g/dL (13.5-17.5); IMMATURE GRAN ABSOLUTE AUTO 0.31 K/mm3 (0.00-0.10); IMMATURE GRAN PERCENT AUTO 2 % (0-1); LYMPHOCYTES ABSOLUTE AUTO 1.00 K/mm3 (0.84-5.20); LYMPHOCYTES PERCENT AUTO 5 % (21-46); MONOCYTES ABSOLUTE AUTO 1.14 K/mm3 (0.16-1.47); MONOCYTES PERCENT AUTO 5 % (4-13); Mean Corpuscular HGB Conc 31.8 g/dL (31.5-36.5); Mean Corpuscular Volume 91 fL (80-100); NEUTROPHILS ABSOLUTE AUTO 18.59 K/mm3 (1.96-9.15); NEUTROPHILS PERCENT AUTO 88 % (41-73); NRBC ABSOLUTE 0.00 K/mm3 (0.00-0.02); NRBC Auto 0.0 /100 WBC (0.0-0.2); Platelet Count 287 K/mm3 (150-400); RDW Coefficient Variation 14.9 % (11.7-14.2); RDW Standard Deviation 49.5 fL (35.1-46.3)
[2025-05-25 11:29] LABS: pH Blood Venous 7.42 (7.34-7.37)
[2025-05-25] MEDS ORDERED: LevoFLOXacin 750 MG/D5W 150ML 150 ML IV ONE (11:55)
[2025-05-25 12:00] LABS: Alanine Aminotransfer (ALT/SGP 51 U/L (12-78); Albumin, Blood 2.4 g/dL (3.4-5.0); Albumin/Globulin Ratio 0.8 (0.8-1.8); Anion Gap 6 mmol/L (3-11); Aspartate Aminotrans (AST/SGOT 34 U/L (12-37); Bilirubin, Total 0.7 mg/dL (0.1-1.0); Blood Urea Nitrogen 26 mg/dL (8-24); CO2, Blood 33 mmol/L (21-32); Calcium, Blood 8.4 mg/dL (8.5-10.1); Chloride, Blood 106 mmol/L (98-108); Creatinine, Blood 0.82 mg/dL (0.60-1.20); Globulin, Blood 3.0 g/dL (2.2-4.0); Glucose, Blood 92 mg/dL (70-99); Potassium, Blood 3.9 mmol/L (3.5-5.5); Sodium, Blood 141 mmol/L (136-145); Total Protein, Blood 5.4 g/dL (6.4-8.2)
[2025-05-25] MEDS ORDERED: Magnesium Hydroxide Conc 10 ML UDC PO PRN (14:40)
[2025-05-25] MEDS ORDERED: FLU VACC TS2025(65UP)/MF59C/PF 45 MCG/0.5 ML SYRINGE IM SCH (14:40)
[2025-05-25] MEDS ORDERED: Ondansetron HCl 2 MG / ML 2ML Vial IV PRN (14:40)
[2025-05-25] MEDS ORDERED: Piperacillin/Tazobactam Sod 3.375 GM in NS 100 ML IV ONE (14:45)
[2025-05-25] MEDS ORDERED: Tiotropium Bromide 2.5 MCG/ACT MIST INHAL (10 ACT/4 GM) INH SCH (16:25)
[2025-05-25] MEDS ORDERED: Albuterol HFA200 ACT/6.7 GM INH INH PRN (16:25)
[2025-05-25] MEDS ORDERED: Formoterol/Mometasone MDI 5/200 mcg 13 GM INH SCH (16:25)
[2025-05-25] MEDS ORDERED: Furosemide 10 MG / ML 2ML Vial IV SCH (18:00)
[2025-05-25 18:09] VITALS: BP 155/83
--- NOTE | 2025-05-25 18:56 | NUR ---
ADMIT NOTE RECEIVED REPORT FROM PHILIPPE ESPOSITO IN ED. PT TO ROOM, 3 PERSON TRANSFER TO BED. PT ORIENTED TO ROOM AND CALL LIGHT. PT EDUCATED ON FALL RISK AND FIRE RISK. PT ALERT, ORIENTED X4; ANXIOUS AT TIMES, COOPERATIVE WITH CARE. JAMUL. PT DENIES PAIN, CHEST PAIN/PRESSURE, NAUSEA, DIZZINESS AND NUMB/TINGLING. TELE AFIB 100-120'S, BP ELEVATED, BP ON LEFT ARM ONLY. EDEMA NOTED TO BLE. LASIX AND AMIO GIVEN. SPO2 >90% ON RA, SOB AT MINIMAL EXERTION. ABD SOFT, NONTENDER, +BT. OTHER VSS. CALL LIGHT WITHIN REACH.
[2025-05-25 20:34] VITALS: BP 148/73
[2025-05-25] MEDS ORDERED: Beta-Carotene (A) W-C & E/Min 1 Tab PO SCH (21:00)
[2025-05-25] MEDS ORDERED: Lactobacil 2-S.Thermo-Bifido 1 1 Cap PO SCH ×2 (21:00)
[2025-05-25] MEDS ORDERED: Piperacillin/Tazobactam Sod 3.375 GM in NS 100 ML IV SCH (23:00)
[2025-05-25] MEDS ORDERED: NS 250 ML IV PRN (23:05)
[2025-05-25 23:50] VITALS: BP 134/63
[2025-05-26 03:31] VITALS: BP 153/60
--- NOTE | 2025-05-26 03:48 | NUR ---
SHIFT SUMMARY PT IS A&OX4, ABLE TO VERBALIZE NEEDS AND CALLS APPROPRIATELY. HE HASN'T GOT OUT OF BED THIS SHIFT. USES URINAL. HE REQUESTED MELATONIN TO HELP HIM SLEEP. ORDER WAS OBTAINED AND MED WAS GIVEN. REMAINS IN AFIB/AFLUTTER WITH BBB IN THE 70 S-LOW 90 S. HES BEEN CONSULTED BY DR. CM AND WILL BE SEEN TODAY TO DECIDE WHAT THE PLAN WILL BE. BP IS GOOD. BP IS TO ONLY BE TAKEN ON THE LT ARM. REMAINS ON RA SATTING AT 97-100%. HE WAS TOLERATING A HEART HEALTHY DIET BUT HAS BEEN NPO SINCE MIDNIGHT FOR A POSSIBLE CARDIOVERSION. ABLE TO TAKE MEDS WHOLE WITH WATER. BED IN LOWEST POSITION, CALL LIGHT WITHIN REACH. CALLS APPROPRIATELY AND IS ABLE TO ADVOCATE NEEDS EFFECTIVELY.
[2025-05-26 04:49] LABS: BASOPHILS ABSOLUTE AUTO 0.03 K/mm3 (0.00-0.23); BASOPHILS PERCENT AUTO 0 % (0-2); EOSINOPHILS ABSOLUTE AUTO 0.24 K/mm3 (0.00-0.68); EOSINOPHILS PERCENT AUTO 1 % (0-6); Hematocrit 36.5 % (37.0-53.0); Hemoglobin 11.9 g/dL (13.5-17.5); IMMATURE GRAN ABSOLUTE AUTO 0.30 K/mm3 (0.00-0.10); IMMATURE GRAN PERCENT AUTO 1 % (0-1); LYMPHOCYTES ABSOLUTE AUTO 1.25 K/mm3 (0.84-5.20); LYMPHOCYTES PERCENT AUTO 6 % (21-46); MONOCYTES ABSOLUTE AUTO 1.13 K/mm3 (0.16-1.47); MONOCYTES PERCENT AUTO 5 % (4-13); Mean Corpuscular HGB Conc 32.6 g/dL (31.5-36.5); Mean Corpuscular Volume 90 fL (80-100); NEUTROPHILS ABSOLUTE AUTO 19.16 K/mm3 (1.96-9.15); NEUTROPHILS PERCENT AUTO 87 % (41-73); NRBC ABSOLUTE 0.00 K/mm3 (0.00-0.02); NRBC Auto 0.0 /100 WBC (0.0-0.2); Platelet Count 268 K/mm3 (150-400); RDW Coefficient Variation 15.0 % (11.7-14.2); RDW Standard Deviation 49.2 fL (35.1-46.3)
[2025-05-26 05:13] LABS: Anion Gap 7.0 mmol/L (3-11); Blood Urea Nitrogen 23.0 mg/dL (8-24); CO2, Blood 34.0 mmol/L (21-32); Calcium, Blood 8.3 mg/dL (8.5-10.1); Chloride, Blood 102.0 mmol/L (98-108); Creatinine, Blood 0.96 mg/dL (0.60-1.20); Glucose, Blood 102.0 mg/dL (70-99); Magnesium, Blood 2.1 mg/dL (1.6-2.4); Potassium, Blood 3.6 mmol/L (3.5-5.5); Sodium, Blood 139.0 mmol/L (136-145)
[2025-05-26 08:52] VITALS: BP 131/74
[2025-05-26] MEDS ORDERED: Cholecalciferol 1000 Unit Tablet (=25MCG) PO SCH (09:00)
[2025-05-26] MEDS ORDERED: Multivitamins/Minerals 1 Tab PO SCH (09:00)
[2025-05-26] MEDS ORDERED: Fluticasone 0.05% Nasal Spray SCH (09:00)
--- NOTE | 2025-05-26 10:46 | NUR ---
ASSUMED CARE OF PT PT A/O X 4 NPO AWAITING POSSIBLE CARDIOVERSION NO C/O PAIN NO DISTRESS. POOR PERFUSION NOTED SO HAVING DIFFICULTY WITH MAINTAINING PROPER SENSING AND LOW O2. ECG DONE PER MD, CARDIAC WNL WILL BE HOLDING OFF ON CARDIOVERSION FOR NOW AND MONITORING MEDICATION ADMINISTRATION.
[2025-05-26] MEDS ORDERED: LevoFLOXacin 750 MG/D5W 150ML 150 ML IV SCH (12:00)
[2025-05-26 12:51] VITALS: BP 108/53
--- NOTE | 2025-05-26 16:08 | NUR ---
WORKED WITH PT. PT DID WELL WORKING WITH PHYSICAL THERAPY, MAINTAINED HEART RATE BUT STILL HAVING DIFFICULTY MAINTAINING GOOD O2 SAT, PT PLACED ON 1.5 L NC, PT GREG WELL AND HAS BEEN ABLE TO HOLD HIS SATURATION IN THE MID 90S.
[2025-05-26 17:30] VITALS: BP 125/58
[2025-05-26 20:19] VITALS: BP 125/57
[2025-05-27] VITALS (8 sets, daily range): BP systolic 102–165; BP diastolic 54–69
--- NOTE | 2025-05-27 00:49 | NUR ---
CALLED AND GAVE REPORT TO DARREL PAEZ. PT IS TRANSFERRING TO ROOM 356. PT BROUGHT UP IN BED WITH ALL BELONGINGS.
--- NOTE | 2025-05-27 01:12 | NUR ---
RECIEVED REPORT PT TRANSFERED TO MEDICAL 356, PT ON TELE A FLUTTER @113 WITH BBB , DENIES CHEST PAIN, DISCOMFORT, PT A&OX4, BP LEFT ARM ONLY, ON BEDREST WITH BATHROOM PRIVLEDGES. DISCHARGE PLAN IS TO GO TO INPATIENT REHAB AT [facility]
[2025-05-27 04:57] LABS: BASOPHILS ABSOLUTE AUTO 0.04 K/mm3 (0.00-0.23); BASOPHILS PERCENT AUTO 0 % (0-2); EOSINOPHILS ABSOLUTE AUTO 0.47 K/mm3 (0.00-0.68); EOSINOPHILS PERCENT AUTO 2 % (0-6); Hematocrit 37.2 % (37.0-53.0); Hemoglobin 12.0 g/dL (13.5-17.5); IMMATURE GRAN ABSOLUTE AUTO 0.33 K/mm3 (0.00-0.10); IMMATURE GRAN PERCENT AUTO 2 % (0-1); LYMPHOCYTES ABSOLUTE AUTO 1.55 K/mm3 (0.84-5.20); LYMPHOCYTES PERCENT AUTO 7 % (21-46); MONOCYTES ABSOLUTE AUTO 1.27 K/mm3 (0.16-1.47); MONOCYTES PERCENT AUTO 6 % (4-13); Mean Corpuscular HGB Conc 32.3 g/dL (31.5-36.5); Mean Corpuscular Volume 91 fL (80-100); NEUTROPHILS ABSOLUTE AUTO 18.28 K/mm3 (1.96-9.15); NEUTROPHILS PERCENT AUTO 83 % (41-73); NRBC ABSOLUTE 0.00 K/mm3 (0.00-0.02); NRBC Auto 0.0 /100 WBC (0.0-0.2); Platelet Count 295 K/mm3 (150-400); RDW Coefficient Variation 15.0 % (11.7-14.2); RDW Standard Deviation 50.1 fL (35.1-46.3)
[2025-05-27 05:43] LABS: Anion Gap 4.0 mmol/L (3-11); Blood Urea Nitrogen 23.0 mg/dL (8-24); CO2, Blood 35.0 mmol/L (21-32); Calcium, Blood 8.6 mg/dL (8.5-10.1); Chloride, Blood 103.0 mmol/L (98-108); Creatinine, Blood 0.97 mg/dL (0.60-1.20); Glucose, Blood 155.0 mg/dL (70-99); Magnesium, Blood 2.1 mg/dL (1.6-2.4); Potassium, Blood 4.0 mmol/L (3.5-5.5); Sodium, Blood 138.0 mmol/L (136-145)
--- NOTE | 2025-05-27 06:49 | NUR ---
SHIFT SUMMARY; PT A/OX4 AND IS INDEPENDENT IN THE ROOM. UPON ASCULATATION, LUNG SOUNDS HAVE EXPIRATORY WHEEZE IN ALL FARIA. PT W/ S/SXS OF CHEST TIGHTNESS AND COUGH THAT HAS LESSENED AFTER BREATHING TX AND LOZENGER. O2 SAT READINGS REMAIN BETWEEN 91-93%. 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 VSS. TELE READING AT SR AT 89 BPM W/ OCCASIONAL TACHYCARDIA. BED IN LOWEST POSITION AND CALL LIGHT WITHIN REACH.
--- NOTE | 2025-05-27 18:01 | NUR ---
PALLIATIVE CARE VISIT: MET WITH PT TO DISCUSS CODE STATUS, POLST AND ADVANCE DIRECTIVE. PT IS AGREEABLE TO VISIT. HE IS ABLE TO MAKE INFORMED DECISIONS. EDUCATED PT ON CURRENT CODE STATUS. PT STATED, "I DON'T WANT TO BE ON ANY BREATHING MACHINES UNDER ANY CIRCUMSTANCES." EDUCATED PT ON CPR VS DNR MEASURES. PT STATES HE WOULD NOT WANT CHEST COMPRESSIONS. PT STATES HE WOULD BE OKAY WITH CARDIOVERSION AND MEDICATIONS. PT CHOSE DNR SELECTIVE MEASURES. HE SIGNED POLST. RECOMMENDED PT COMPLETE AN ADVANCE DIRECTIVE AND EDUCATED HIM ON FORM. 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 PROVIDED ADVANCE DIRECTIVE FOR HIM TO REVIEW AND EXPLAINED THE DIFFERENCE OF EACH FORM. CALLED DR. GREENE AND HE AGREED TO DNR ORDER. HE WILL NOT BE HERE TOMORROW SO WILL GET COVERING PROVIDER TO SIGN POLST. DNR ORDER PLACED REQUESTED. UPDATED PRIMARY RN.
--- NOTE | 2025-05-27 18:21 | NUR ---
SHIFT SUMMARY NO ACUTE CHANGES, A/Ox4, ABLE TO MAKE NEEDS KNOWN AND USES CALL SYSTEM APPROPRIATELY. PT DENIES PAIN. PT WEENED OFF SUPPLEMENTAL O2. NOW SATING 97-100% ON RA, PT REPORTS SOB PRIMARILY WITH AMBULATION BUT REPORTS IMPROVEMENT SINCE ADMISSION. PT NOW DNR STATUS AFTER DISCUSSION c PALLIATIVE CARE RN. CODE STATUS UPDATED IN CHART AND DNR BAND PLACE ON PT WRIST. PT CURRENTLY RESTING PEACEFULLY IN BED WITH BED IN LOWEST POSITION AND CALL LIGHT WITHIN REACH.
[2025-05-28 04:32] VITALS: BP 128/62
[2025-05-28 04:44] LABS: BASOPHILS ABSOLUTE AUTO 0.04 K/mm3 (0.00-0.23); BASOPHILS PERCENT AUTO 0 % (0-2); EOSINOPHILS ABSOLUTE AUTO 0.24 K/mm3 (0.00-0.68); EOSINOPHILS PERCENT AUTO 1 % (0-6); Hematocrit 36.1 % (37.0-53.0); Hemoglobin 11.8 g/dL (13.5-17.5); IMMATURE GRAN ABSOLUTE AUTO 0.26 K/mm3 (0.00-0.10); IMMATURE GRAN PERCENT AUTO 1 % (0-1); LYMPHOCYTES ABSOLUTE AUTO 1.56 K/mm3 (0.84-5.20); LYMPHOCYTES PERCENT AUTO 7 % (21-46); MONOCYTES ABSOLUTE AUTO 1.58 K/mm3 (0.16-1.47); MONOCYTES PERCENT AUTO 7 % (4-13); Mean Corpuscular HGB Conc 32.7 g/dL (31.5-36.5); Mean Corpuscular Volume 89 fL (80-100); NEUTROPHILS ABSOLUTE AUTO 18.83 K/mm3 (1.96-9.15); NEUTROPHILS PERCENT AUTO 84 % (41-73); NRBC ABSOLUTE 0.00 K/mm3 (0.00-0.02); NRBC Auto 0.0 /100 WBC (0.0-0.2); Platelet Count 293 K/mm3 (150-400); RDW Coefficient Variation 15.0 % (11.7-14.2); RDW Standard Deviation 49.6 fL (35.1-46.3)
[2025-05-28 05:09] LABS: Anion Gap 6.0 mmol/L (3-11); Blood Urea Nitrogen 24.0 mg/dL (8-24); CO2, Blood 33.0 mmol/L (21-32); Calcium, Blood 8.3 mg/dL (8.5-10.1); Chloride, Blood 103.0 mmol/L (98-108); Creatinine, Blood 1.01 mg/dL (0.60-1.20); Glucose, Blood 108.0 mg/dL (70-99); Magnesium, Blood 1.9 mg/dL (1.6-2.4); Potassium, Blood 3.8 mmol/L (3.5-5.5); Sodium, Blood 138.0 mmol/L (136-145)
--- NOTE | 2025-05-28 05:18 | NUR ---
SHIFT SUMMARY; PT A/OX4 AND IS A 1-2 PERSON ASSIST W/ AMBULATION, HOWEVER HAS REMAINED AT BEDREST DURING THIS SHIFT. PT OBSERVED TO HAVE MOIST, PRODUCTIVE COUGH. SPUTUM HAS CLEAR AND THIN CONSISTENCY. PT OBSERVED HAVING EPISODE OF SHORTNESS OF BREATH AND TACHYPENIA WHEN REPOSITIONING HIMSELF IN BED W/ O2 SATS REMAINING >95% WHEN SITTING UP ON RA. LUNG SOUNDS ARE CLEAR UPON AUSCULTATION. PT MEDICATED PER EMAR. PT ON TELE READING AFLUTTER AT 88 BPM. VSS. CALL LIGHT WITHIN REACH AND BED IN LOWEST POSITION.
[2025-05-28 07:15] VITALS: BP 101/62
[2025-05-28] MEDS ORDERED: Mag Sulfate 1 GM/D5% 100ML 100 ML IV STA (07:28)
--- NOTE | 2025-05-28 09:00 | NUR ---
Pt laying in bed awake a/ox4, pleasant and coopertive with care, follows commands well, denies pain, states sob with activity, lungs are clear in upper rodriguez, dim in bases, resp even and unlabored at rest, becomes labored with activity, but sats remain above 90%, has a harsh productive cough of white sputum, hrr, tele in place running aflutter per monitor, see strip, no edema noted, ppp+3, cap refill <3sec, vs stable, afebrile, piv to rac, site is clear and patent, btx4, abd flat soft nontender, voids without diff, skin c/w/d, maew, sam, uses walker to ambulate, call light in reach.
[2025-05-28 11:17] VITALS: BP 136/67
[2025-05-28 15:25] VITALS: BP 134/65
--- NOTE | 2025-05-28 18:00 | NUR ---
no acute changes this shift, pt working on flutter valve, no needs or changes this shift. call light in reach.
--- NOTE | 2025-05-28 18:17 | NUR ---
PALLIATIVE CARE NOTE: POLST SIGNED BY . COPY SENT TO [facility]. ORIGINAL BACK TO PT.
[2025-05-28 19:53] VITALS: BP 137/88
--- NOTE | 2025-05-29 05:04 | NUR ---
SHIFT SUMMARY PT IS A&OX4, PLEASANT AND COOPERATIVE WITH CARE. NO ACUTE CHANGES THIS SHIFT. PT IS ON RA AND SATING >92%. TELE REMOVED THIS SHIFT. PT RESTED WITH EVEN AND UNLABORED RESPIRATIONS, BED IN THE LOWEST POSITION, AND CALL LIGHT WITHIN REACH.
[2025-05-29 05:40] VITALS: BP 126/61
[2025-05-29 06:15] LABS: BASOPHILS ABSOLUTE AUTO 0.05 K/mm3 (0.00-0.23); BASOPHILS PERCENT AUTO 0 % (0-2); EOSINOPHILS ABSOLUTE AUTO 0.11 K/mm3 (0.00-0.68); EOSINOPHILS PERCENT AUTO 0 % (0-6); Hematocrit 36.7 % (37.0-53.0); Hemoglobin 11.8 g/dL (13.5-17.5); IMMATURE GRAN ABSOLUTE AUTO 0.26 K/mm3 (0.00-0.10); IMMATURE GRAN PERCENT AUTO 1 % (0-1); LYMPHOCYTES ABSOLUTE AUTO 1.17 K/mm3 (0.84-5.20); LYMPHOCYTES PERCENT AUTO 5 % (21-46); MONOCYTES ABSOLUTE AUTO 1.98 K/mm3 (0.16-1.47); MONOCYTES PERCENT AUTO 8 % (4-13); Mean Corpuscular HGB Conc 32.2 g/dL (31.5-36.5); Mean Corpuscular Volume 90 fL (80-100); NEUTROPHILS ABSOLUTE AUTO 21.22 K/mm3 (1.96-9.15); NEUTROPHILS PERCENT AUTO 86 % (41-73); NRBC ABSOLUTE 0.00 K/mm3 (0.00-0.02); NRBC Auto 0.0 /100 WBC (0.0-0.2); Platelet Count 319 K/mm3 (150-400); RDW Coefficient Variation 15.0 % (11.7-14.2); RDW Standard Deviation 49.7 fL (35.1-46.3)
[2025-05-29] MEDS ORDERED: Mag Sulfate 1 GM/D5% 100ML 100 ML IV STA (06:45)
[2025-05-29 06:49] LABS: Alanine Aminotransfer (ALT/SGP 49.0 U/L (12-78); Albumin, Blood 2.4 g/dL (3.4-5.0); Albumin/Globulin Ratio 0.8 (0.8-1.8); Anion Gap 5.0 mmol/L (3-11); Aspartate Aminotrans (AST/SGOT 26.0 U/L (12-37); Bilirubin, Total 0.7 mg/dL (0.1-1.0); Blood Urea Nitrogen 20.0 mg/dL (8-24); CO2, Blood 34.0 mmol/L (21-32); Calcium, Blood 8.2 mg/dL (8.5-10.1); Chloride, Blood 102.0 mmol/L (98-108); Creatinine, Blood 0.96 mg/dL (0.60-1.20); Globulin, Blood 3.1 g/dL (2.2-4.0); Glucose, Blood 96.0 mg/dL (70-99); Potassium, Blood 4.1 mmol/L (3.5-5.5); Sodium, Blood 137.0 mmol/L (136-145); Total Protein, Blood 5.5 g/dL (6.4-8.2)
[2025-05-29 07:50] VITALS: BP 152/70
[2025-05-29] MEDS ORDERED: Banana Flakes/Tos 1 EA Powder Pack PO SCH (11:30)
[2025-05-29 12:50] LABS: SARS-Cov-2 (COVID-19) PCR, MMC POSITIVE (NEGATIVE)
[2025-05-29 16:08] VITALS: BP 123/58
--- NOTE | 2025-05-29 17:12 | NUR ---
SHIFT SUMMARY PT IS A/OX4, SOBOBA. SBA WITH FWW TO BATHROOM/CHAIR. EXPECTED DC THIS AFTERNOON, HOWEVER TEST CAME BACK POSITIVE FOR COVID. PT REMAINS ON RA, SATS >92%. OCCASSIONAL PRODUCTIVE COUGH. PT IS PLEASANT AND COOPERATIVE WITH CARE AND CALLS APPROPRIATELY.
[2025-05-29 19:58] VITALS: BP 121/73
[2025-05-30 02:18] VITALS: BP 123/79
[2025-05-30 05:19] LABS: BASOPHILS ABSOLUTE AUTO 0.03 K/mm3 (0.00-0.23); BASOPHILS PERCENT AUTO 0 % (0-2); EOSINOPHILS ABSOLUTE AUTO 0.07 K/mm3 (0.00-0.68); EOSINOPHILS PERCENT AUTO 0 % (0-6); Hematocrit 36.3 % (37.0-53.0); Hemoglobin 11.8 g/dL (13.5-17.5); IMMATURE GRAN ABSOLUTE AUTO 0.19 K/mm3 (0.00-0.10); IMMATURE GRAN PERCENT AUTO 1 % (0-1); LYMPHOCYTES ABSOLUTE AUTO 0.84 K/mm3 (0.84-5.20); LYMPHOCYTES PERCENT AUTO 4 % (21-46); MONOCYTES ABSOLUTE AUTO 2.01 K/mm3 (0.16-1.47); MONOCYTES PERCENT AUTO 9 % (4-13); Mean Corpuscular HGB Conc 32.5 g/dL (31.5-36.5); Mean Corpuscular Volume 89 fL (80-100); NEUTROPHILS ABSOLUTE AUTO 18.24 K/mm3 (1.96-9.15); NEUTROPHILS PERCENT AUTO 85 % (41-73); NRBC ABSOLUTE 0.00 K/mm3 (0.00-0.02); NRBC Auto 0.0 /100 WBC (0.0-0.2); Platelet Count 289 K/mm3 (150-400); RDW Coefficient Variation 15.2 % (11.7-14.2); RDW Standard Deviation 49.4 fL (35.1-46.3)
--- NOTE | 2025-05-30 05:48 | NUR ---
SHIFT SUMMARY PT IS A&OX4, PLEASANT AND COOPERATIVE WITH CARE. PT TESTED POSITIVE FOR COVID LAST SHIFT, RESULTING IN A DELAY IN DISCHARGE. PT USES URINAL INDEPENDENTLY AT BEDSIDE. NO ACUTE CHANGES THIS SHIFT. PT RESTED T/O SHIFT WITH EVEN AND UNLABORED RESPIRATIONS, BED IN THE LOWEST POSITION AND CALL LIGHT WITHIN REACH
[2025-05-30 06:29] LABS: Alanine Aminotransfer (ALT/SGP 45.0 U/L (12-78); Albumin, Blood 2.4 g/dL (3.4-5.0); Albumin/Globulin Ratio 0.8 (0.8-1.8); Anion Gap 5.0 mmol/L (3-11); Aspartate Aminotrans (AST/SGOT 22.0 U/L (12-37); Bilirubin, Total 0.5 mg/dL (0.1-1.0); Blood Urea Nitrogen 19.0 mg/dL (8-24); CO2, Blood 34.0 mmol/L (21-32); Calcium, Blood 8.3 mg/dL (8.5-10.1); Chloride, Blood 101.0 mmol/L (98-108); Creatinine, Blood 1.01 mg/dL (0.60-1.20); Globulin, Blood 3.2 g/dL (2.2-4.0); Glucose, Blood 115.0 mg/dL (70-99); Magnesium, Blood 2.3 mg/dL (1.6-2.4); Potassium, Blood 3.9 mmol/L (3.5-5.5); Sodium, Blood 136.0 mmol/L (136-145); Total Protein, Blood 5.6 g/dL (6.4-8.2)
[2025-05-30 07:29] VITALS: BP 138/66
[2025-05-30] MEDS ORDERED: Remdesivir (EUA) 200 MG in NS 250 ML IV ONE (09:45)
[2025-05-30] MEDS ORDERED: Dexamethasone Sod Phos 10 MG/ML 1ML VIAL IV SCH (10:00)
--- NOTE | 2025-05-30 16:16 | NUR ---
SHIFT SUMMARY PT IS A/OX4. SBA WITH FWW TO BATHROOM. NO ACUTE CHANGES THROUGHOUT THIS SHIFT. PT REMAINS ON RA, SATS >92%. DYSPNEA NOTED WITH EXERTION WITH QUICK RECOVERY UPON REST. SON AT BEDSIDE THIS AFTERNOON. PT IS PLEASANT AND COOPERATIVE WITH CARE AND CALLS APROPRIATELY USING THE CALL LIGHT.
[2025-05-30 16:33] VITALS: BP 120/63
[2025-05-30 19:38] VITALS: BP 128/49
[2025-05-31 04:04] VITALS: BP 114/61
--- NOTE | 2025-05-31 06:28 | NUR ---
A/Ox4, VSS ON RA. PT REPORTS SOB WITH EXERTION. DENIES PAIN OR NAUSEA. UP WITH SBA/FWW. SAFETY AND DROPLET PRECAUTIONS IN PLACE. NO ACUTE CHANGES OVERNIGHT.
[2025-05-31 07:16] LABS: BASOPHILS ABSOLUTE AUTO 0.02 K/mm3 (0.00-0.23); BASOPHILS PERCENT AUTO 0 % (0-2); EOSINOPHILS ABSOLUTE AUTO 0.00 K/mm3 (0.00-0.68); EOSINOPHILS PERCENT AUTO 0 % (0-6); Hematocrit 35.8 % (37.0-53.0); Hemoglobin 11.7 g/dL (13.5-17.5); IMMATURE GRAN ABSOLUTE AUTO 0.13 K/mm3 (0.00-0.10); IMMATURE GRAN PERCENT AUTO 1 % (0-1); LYMPHOCYTES ABSOLUTE AUTO 0.50 K/mm3 (0.84-5.20); LYMPHOCYTES PERCENT AUTO 4 % (21-46); MONOCYTES ABSOLUTE AUTO 1.24 K/mm3 (0.16-1.47); MONOCYTES PERCENT AUTO 9 % (4-13); Mean Corpuscular HGB Conc 32.7 g/dL (31.5-36.5); Mean Corpuscular Volume 90 fL (80-100); NEUTROPHILS ABSOLUTE AUTO 11.64 K/mm3 (1.96-9.15); NEUTROPHILS PERCENT AUTO 86 % (41-73); NRBC ABSOLUTE 0.00 K/mm3 (0.00-0.02); NRBC Auto 0.0 /100 WBC (0.0-0.2); Platelet Count 280 K/mm3 (150-400); RDW Coefficient Variation 15.4 % (11.7-14.2); RDW Standard Deviation 51.2 fL (35.1-46.3)
[2025-05-31 07:39] VITALS: BP 132/64
[2025-05-31 07:41] LABS: Anion Gap 8.0 mmol/L (3-11); Blood Urea Nitrogen 24.0 mg/dL (8-24); CO2, Blood 32.0 mmol/L (21-32); Calcium, Blood 8.9 mg/dL (8.5-10.1); Chloride, Blood 100.0 mmol/L (98-108); Creatinine, Blood 1.02 mg/dL (0.60-1.20); Glucose, Blood 116.0 mg/dL (70-99); Magnesium, Blood 2.5 mg/dL (1.6-2.4); Potassium, Blood 4.6 mmol/L (3.5-5.5); Sodium, Blood 135.0 mmol/L (136-145)
[2025-05-31] MEDS ORDERED: Remdesivir (EUA) 100 MG in NS 250 ML IV SCH (12:00)
[2025-05-31 15:26] VITALS: BP 130/64
--- NOTE | 2025-05-31 19:10 | NUR ---
SHIFT SUMMARY: PATIENT REMAINS A+O X4 AND IS ABLE TO MAKE NEEDS KNOWN. MR. RANDHAWA HAS MADE GREAT IMPROVEMENT THIS DAY. WORKED WITH PT WHO RECOMMENDS HH. DECLINED OT. NO NEW OR ACUTE CHANGES THIS SHIFT. PLAN TO D/C 06/01/25 c HH. BED LOCKED IN LOWEST POSITION, CALL LIGHT WITHIN REACH. WILL REPORT TO ONCOMING NURSE.
[2025-05-31 19:48] VITALS: BP 125/61
[2025-06-01 04:58] VITALS: BP 128/58
[2025-06-01 04:59] LABS: BASOPHILS ABSOLUTE AUTO 0.02 K/mm3 (0.00-0.23); BASOPHILS PERCENT AUTO 0 % (0-2); EOSINOPHILS ABSOLUTE AUTO 0.00 K/mm3 (0.00-0.68); EOSINOPHILS PERCENT AUTO 0 % (0-6); Hematocrit 33.8 % (37.0-53.0); Hemoglobin 11.2 g/dL (13.5-17.5); IMMATURE GRAN ABSOLUTE AUTO 0.10 K/mm3 (0.00-0.10); IMMATURE GRAN PERCENT AUTO 1 % (0-1); LYMPHOCYTES ABSOLUTE AUTO 0.77 K/mm3 (0.84-5.20); LYMPHOCYTES PERCENT AUTO 5 % (21-46); MONOCYTES ABSOLUTE AUTO 1.12 K/mm3 (0.16-1.47); MONOCYTES PERCENT AUTO 8 % (4-13); Mean Corpuscular HGB Conc 33.1 g/dL (31.5-36.5); Mean Corpuscular Volume 89 fL (80-100); NEUTROPHILS ABSOLUTE AUTO 12.20 K/mm3 (1.96-9.15); NEUTROPHILS PERCENT AUTO 86 % (41-73); NRBC ABSOLUTE 0.00 K/mm3 (0.00-0.02); NRBC Auto 0.0 /100 WBC (0.0-0.2); Platelet Count 293 K/mm3 (150-400); RDW Coefficient Variation 15.2 % (11.7-14.2); RDW Standard Deviation 49.4 fL (35.1-46.3)
[2025-06-01 05:16] LABS: Anion Gap 7.0 mmol/L (3-11); Blood Urea Nitrogen 33.0 mg/dL (8-24); CO2, Blood 32.0 mmol/L (21-32); Calcium, Blood 8.5 mg/dL (8.5-10.1); Chloride, Blood 100.0 mmol/L (98-108); Creatinine, Blood 1.12 mg/dL (0.60-1.20); Glucose, Blood 121.0 mg/dL (70-99); Magnesium, Blood 2.3 mg/dL (1.6-2.4); Potassium, Blood 4.6 mmol/L (3.5-5.5); Sodium, Blood 134.0 mmol/L (136-145)
--- NOTE | 2025-06-01 06:12 | NUR ---
A/Ox4, VSS ON RA. INTERMITTENT MOIST COUGH. PT DENIES SOB, PAIN, NAUSEA. PT STATED HE WAS FEELING GOOD ABOUT THE DISCHARGE PLAN WITH HOME HEALTH. NO ACUTE CHANGES OVERNIGHT. UP TO RESTROOM WITH SBA/FWW. SAFETY AND DROPLET PRECAUTIONS IN PLACE. CALL LIGHT IN REACH.
[2025-06-01 07:47] VITALS: BP 145/55
--- NOTE | 2025-06-01 09:00 | NUR ---
pt laying in bed sits up indep, a/ox4, pleasant and cooperative with care, follows commands well, deneis pain, states he's doing ok, lungs are clear t/o, posterior, but some courseness noted around bronchial anterior, resp even and unlabobored, has a moist productive cough of white sputum, on r/a, hrirr, no edema noted, ppp+1, cap refill <3 sec, vs stable, afebrile, piv to rac site is clear and patent, btx4, abd flat soft nontender, voids without diff, via urinal clear yellow urine, skin c/w/d, sam christianson call light in reach.
[2025-06-01] MEDS ORDERED: DECADRON6 M1 PO (15:07)
[2025-06-01] MEDS ORDERED: Amiodarone HCl200 MG PO (15:07)
--- NOTE | 2025-06-01 16:22 | NUR ---
DISCHARGE REVIEWED WITH PT. PT VERBALIZED UNDERSTANDING MEEDS AND INST. IV AND TELE REMOVED BY AIDE. PT WHEELED TO DOOR BY AIDE AT 1620
== END 2025-06-01 16:23 | disposition home health service (06) | DRG 280 ==
LOC: ER 10:35 → MEDS 10:36 → ER 10:36 → ICUE 10:36 → PCU 18:01 → MEDS 05-27 01:07 → ENPENDDIS 06-01 11:36 → MEDS 06-01 16:23
PROVIDERS: Student in an Organized Health Care Education/Training Program; ADMIT Internal Medicine
PROC: 3E03329 Introduction of Other Anti-infective into Peripheral Vein, Percutaneous Approach (ICD-10-PCS; principal; 2025-05-25)
PROC: XW033E5 Introduction of Remdesivir Anti-infective into Peripheral Vein, Percutaneous Approach, New Technology Group 5 (ICD-10-PCS; 2025-05-30)
DX: I48.92 Unspecified atrial flutter (principal); I50.33 Acute on chronic diastolic (congestive) heart failure; I21.A1 Myocardial infarction type 2; J18.9 Pneumonia, unspecified organism; U07.1 COVID-19; J44.0 Chronic obstructive pulmonary disease with (acute) lower respiratory infection; Z66 Do not resuscitate; I11.0 Hypertensive heart disease with heart failure; Z60.2 Problems related to living alone; I25.10 Atherosclerotic heart disease of native coronary artery without angina pectoris; E78.5 Hyperlipidemia, unspecified; I27.20 Pulmonary hypertension, unspecified; I48.91 Unspecified atrial fibrillation; I35.0 Nonrheumatic aortic (valve) stenosis; I95.9 Hypotension, unspecified; I73.9 Peripheral vascular disease, unspecified; Z87.891 Personal history of nicotine dependence; Z79.01 Long term (current) use of anticoagulants; Z79.51 Long term (current) use of inhaled steroids; Z79.82 Long term (current) use of aspirin; Z79.899 Other long term (current) drug therapy
CPT/HCPCS: 36415; 71045; 80048; 80053; 80162; 82803; 83605; 83735; 83880; 84145; 84484; 85025; 85060; 87040; 93005; 93010; 94640; 94664; 94760; 94762; 96365; 96366; 96367; 96375; 96376; 97110; 97116; 97162; 97165; 97530; 99285-25; A9270; G0378; J0248; J1100; J1938; J1956; J2543; J3475; J3480; J7050; J7120; U0002